=== PATIENT | female | born 1955 | race Caucasian/White ===

== ENCOUNTER 2017-04-15 08:02 | Day surgery (SDC) | payer BC ==
--- NOTE | 2017-04-09 12:12 | HISTORY AND PHYSICAL E ---
History and Physical NAME: GIANFRANCO ROSE : 1955 AGE: 61Y ADMITTED: 04/15/2017 ROOM: CHIEF COMPLAINT: Patient presented for colonoscopy. Family history of polyps. Patient did have cholecystectomy. PHYSICAL EXAMINATION: GENERAL: Pleasant, alert, oriented. VITAL SIGNS: Blood pressure 140/80, pulse 80, respirations 18, temp is 98. HEENT: Normal. NECK: Supple. LUNGS: Clear. ABDOMEN: Soft. NEUROLOGIC: Exam negative. HISTORY: Strong family history of colon cancer. She is status post cholecystectomy. Questioned celiac disease. REVIEW OF SYSTEMS: Patient has possible celiac disease. She does not smoke. She works . Her primary is Dr. Donaldo Whitmore. She did have cholecystectomy. She does have history of constipation. Colonoscopy in 2006. Benign-looking rectal polyps. Abdominal pain, bloating, hyperplastic polyps. Patient was seen again, a 61-year-old female, appearing for colon screening, colonoscopy in 2006, cholecystectomy, hysterectomy. MEDICATIONS: Patient takes blood pressure medicine and Baby Aspirin. CONCLUSIONS: Colon screening April 15. DICTATING PHYSICIAN: KACEY FIGUEROA M.D. [id number] PHY#: [id number] ID: [id number] JOB#: [id number] ACCT: [id number] cc:KACEY FIGUEROA M.D., TIMOTHY M.D. >
[~2017-04-15 08:02] MED LIST: EPINEPHRINE INJ 1 MG/10 ML DISP.SYRIN ONE; FLUMAZENIL INJ 0.5 MG/5 ML VIAL ONE; GLUCAGON,HUMAN RECOMB 1 MG INJ ONE; GLYCOPYRROLATE INJ 0.4 MG/2 ML VIAL ONE; LIDOCAINE 2% JELLY 30 ML TUBE ONE; MIDAZOLAM 2 MG/2 ML INJ ONE; NALOXONE HCL INJ/PF 0.4 MG/1 ML SDV ONE; ONDANSETRON HCL INJ/PF 4 MG/2 ML SDV ONE
[2017-04-15] MEDS: MIDAZOLAM 2 MG/2 ML INJ ONE ×3 (09:15→09:32)
[2017-04-15] MEDS: FENTANYL CITRATE INJ/PF 100 MCG/2 ML AMPUL ONE ×3 (09:18→09:26)
[2017-04-15 10:39] LABS: ABSOLUTE EOSINOPHILS # (AUTO) 0.1 10^3/uL (0.0-0.6); ABSOLUTE LYMPHOCYTES (AUTO) 1.7 10^3/uL (0.5-4.7); ABSOLUTE MONOCYTES (AUTO) 0.3 10^3/uL (0.1-1.4); ABSOLUTE NEUT (AUTO) 6.8 10^3/uL (1.7-8.2); BASOPHILS % (AUTO) 0.5 % (0-2); EOSINOPHILS % (AUTO) 0.9 % (0-6); HEMATOCRIT 40.8 % (36.0-47.0); HEMOGLOBIN 14.1 g/dL (12.0-15.5); HGB HCT DIFFERENCE 1.5; LYMPHOCYTES % (AUTO) 18.6 % (13-45); MEAN CORPUSCULAR HEMOGLOBIN 30.6 pg (27.0-33.4); MEAN CORPUSCULAR HGB CONC 34.5 g/dL (32.0-36.0); MEAN CORPUSCULAR VOLUME 89 fl (80-97); MONOCYTES % (AUTO) 3.8 % (3-13); RED BLOOD COUNT 4.61 10^6/uL (3.72-5.28); RED CELL DISTRIBUTION WIDTH 13.5 % (11.5-14.0); SEGMENTED NEUTROPHILS % (AUTO) 76.2 % (42-78); WHITE BLOOD COUNT 8.9 10^3/uL (4.0-10.5)
[2017-04-15 11:16] VITALS: BP 110/65
--- NOTE | 2017-04-15 12:33 | OPERATIVE REPORT E ---
Operative Report NAME: GIANFRANCO ROSE : 1955 AGE: 61Y DATE OF SURGERY: 04/15/2017 ROOM: PREOPERATIVE DIAGNOSIS: Colon screening. POSTOPERATIVE DIAGNOSIS: A 3 mm polyp rectosigmoid junction. PROCEDURE: Colonoscopy. SURGEON: KACEY FIGUEROA M.D. TISSUE REMOVED OR ALTERED: Polyp resected by biopsy rectosigmoid junction. ANESTHESIA: Versed 4, fentanyl 100. DESCRIPTION OF PROCEDURE: Rectal exam shows mild external hemorrhoids. Rectosigmoid junction shows small polyp 2 mm, biopsy obtained. The biopsy removed the polyp by 2 bites. Descending colon normal. Transverse colon normal. Ascending normal. Cecum normal. Scope withdrawn from cecum, ascending, transverse, descending, sigmoid all the way to the rectum. CONCLUSION: Small 2 mm polyp rectosigmoid junction removed by biopsy. PLAN: Awaiting biopsy results. Hold aspirin 5 days. Consideration followup colonoscopy 3 years. Patient may need to be done with anesthesia standby. She does have hysterectomy scar, made the sigmoid intubation difficult. Cecum normal, ascending colon normal, transverse colon normal, descending normal, sigmoid 2 mm polyp removed by biopsy, mild external hemorrhoids. Patient tolerated the procedure well, discharged to her room in stable condition. DICTATING PHYSICIAN: KACEY FIGUEROA M.D. [id number] [facility]#: [id number] ID: [id number] JOB#: [id number] ACCT: [id number] cc:KACEY FIGUEROA M.D., TIMOTHY M.D. >
--- NOTE | 2017-04-15 12:34 | DISCHARGE SUMMARY E ---
Discharge Summary NAME: GIANFRANCO ROSE : 1955 AGE: 61Y ADMITTED: 04/15/2017 DISCHARGED: 04/15/2017 HISTORY: A 62-year-old female who underwent colon screening today. Colonoscopy was slightly difficult because of history from previous hysterectomy. Her colonoscopy was successful to the cecum. She did have benign-looking polyp 2-3 mm at the sigmoid junction removed by biopsy. DISCHARGE PLAN: Soft, low-residue diet. Baseline CBC. Hold aspirin, nonsteroidal for 3 days. Awaiting biopsy results. Consideration for followup colonoscopy after 3 years. DICTATING PHYSICIAN: KACEY FIGUEROA M.D. [id number] PHY#: [id number] ID: [id number] JOB#: [id number] ACCT: [id number] cc:KACEY FIGUEROA M.D., TIMOTHY M.D. >
== END 2017-04-15 11:50 | disposition home or self-care (01) ==
LOC: END 08:02
PROVIDERS: ATTEND Specialist
PROC: 0DBN8ZX Excision of Sigmoid Colon, Via Natural or Artificial Opening Endoscopic, Diagnostic (ICD-10-PCS; principal; 2017-04-15 09:00)
DX: Z12.11 Encounter for screening for malignant neoplasm of colon (principal); D12.7 Benign neoplasm of rectosigmoid junction; K64.4 Residual hemorrhoidal skin tags; Z80.0 Family history of malignant neoplasm of digestive organs; I10 Essential (primary) hypertension; Z79.899 Other long term (current) drug therapy; Z79.82 Long term (current) use of aspirin
CPT/HCPCS: 45380; 36415; 85025; 88305 ×2; J2250; J0171; J3010; J1610; J2310; J2405; J3490